=== PATIENT | female | born 1945 ===

== ENCOUNTER 2022-12-30 05:45 | Day surgery (SDC) | payer OTHER | END 2022-12-30 12:00 | disposition home or self-care (01) | LOC: AMB-ENDOS 05:45 | PROVIDERS: ATTEND Surgery | DX: K63.5 Polyp of colon (principal); Z20.822 Contact with and (suspected) exposure to COVID-19 ==

== ENCOUNTER 2023-06-12 09:30 | Inpatient (IN) | payer OTHER ==
[~2023-06-12] VITALS: Ht 160 cm; Wt 104.3 kg
[2023-06-12 10:51] LABS: URINE APPEARANCE Clear; URINE BILIRRUBIN Negative (NEGATIVE); URINE BLOOD Negative; URINE COLOR Yellow; URINE GLUCOSE Negative (NEGATIVE); URINE LEUKOCYTE Large; URINE NITRATE Negative; URINE PROTEIN Trace (NEGATIVE)
[2023-06-12 10:51] LABS: HEMATOCRIT 38.5 % (36.0-45.00); MEAN CELL VOLUME 83.6 fL (80.00-100.00); MEAN CORPUSCULAR HGB CONC 31.1 g/dl (32.0-36.0); PLATELET COUNT 223 K/uL (150-450); RED BLOOD COUNT 4.61 M/uL (4.00-6.00); RED CELL DISTRIBUTION WIDTH 14.6 % (11.5-14.5)
[2023-06-12 10:57] LABS: URINE BACTERIA 219.2 uL (0.0-1933); URINE EPITHELIAL CELLS 45.9 uL (0.0-38.8); URINE RBC 8.3 uL (0.0-20.8); URINE WBC 353.4 uL (0.0-23.2)
[2023-06-12 11:26] LABS: ALBUMIN 3.5 gm/dL (3.4-5.0); BILIRUBIN TOTAL 0.46 mg/dL (0.3-1.2); CALCIUM 9.4 mg/dL (8.5-10.1); CREATININE SERUM 0.71 mg/dL (0.55-1.02); GFR 79.82; GLOBULINA 3.1 G/DL (2.4-3.5); PHOSPHOROUS 3.2 mg/dL (2.5-4.9); POTASSIUM 4.67 mEq/L (3.5-5.1); TOTAL PROTEIN 6.6 gm/dL (6.4-8.2)
[2023-06-12 11:28] LABS: INR 0.97; PARTIAL THROMBOPLASTIN TIME 26.9 SECONDS (22.0-34.0); PROTHROMBIN TIME 10.2 SECONDS (9.0-11.5)
[2023-06-12] MEDS ORDERED: GLUMETZA500 MG PO (12:38)
[2023-06-12] MEDS ORDERED: ELIQUIS2.5 MG PO (12:38)
[2023-06-12] MEDS ORDERED: GLIMEPIRIDE4 M1 PO (12:39)
[2023-06-12] MEDS ORDERED: CLARITIN10 M1 PO (12:39)
[2023-06-12] MEDS ORDERED: SINGULAIR10 MG PO (12:39)
[2023-06-12] MEDS ORDERED: LEVOTHYROXINE25 MCG PO (12:40)
[2023-06-12] MEDS ORDERED: LOSAR PO (12:40)
[2023-06-12] MEDS ORDERED: ATORVAST PO (12:40)
[2023-06-12] MEDS ORDERED: EXELON1 EAC1 TD (12:41)
[2023-06-16 20:26] LABS: HEMATOCRIT 37.2 % (36.0-45.00); HEMOGLOBIN 11.6 g/dL (12.0-15.00); MEAN CELL VOLUME 82.6 fL (80.00-100.00); MEAN CORPUSCULAR HEMOGLOBIN 25.9 pg (27.00-32.0); MEAN CORPUSCULAR HGB CONC 31.3 g/dl (32.0-36.0); PLATELET COUNT 218 K/uL (150-450)
[2023-06-16 20:47] LABS: ALBUMIN 3.2 gm/dL (3.4-5.0); CALCIUM 8.7 mg/dL (8.5-10.1); CREATININE SERUM 0.75 mg/dL (0.55-1.02); GFR 74.93; MAGNESIUM 1.9 mg/dL (1.8-2.4); PHOSPHOROUS 4.2 mg/dL (2.5-4.9); POTASSIUM 4.03 mEq/L (3.5-5.1)
[2023-06-17 08:31] LABS: HEMATOCRIT 35.7 % (36.0-45.00); HEMOGLOBIN 11.4 g/dL (12.0-15.00); MEAN CELL VOLUME 83.4 fL (80.00-100.00); MEAN CORPUSCULAR HEMOGLOBIN 26.6 pg (27.00-32.0); MEAN CORPUSCULAR HGB CONC 31.9 g/dl (32.0-36.0); PLATELET COUNT 214 K/uL (150-450); RED BLOOD COUNT 4.29 M/uL (4.00-6.00)
[2023-06-17 08:35] LABS: CALCIUM 8.5 mg/dL (8.5-10.1); CREATININE SERUM 0.92 mg/dL (0.55-1.02); GFR 59.19; MAGNESIUM 2.1 mg/dL (1.8-2.4); PHOSPHOROUS 5.3 mg/dL (2.5-4.9); POTASSIUM 4.23 mEq/L (3.5-5.1)
[2023-06-18] MEDS ORDERED: INTESTINEX680 M1 PO (08:42)
[2023-06-18] MEDS ORDERED: ACETAMINOPHEN500 M2 PO (08:42)
== END 2023-06-18 10:33 | disposition home or self-care (01) | DRG 331 ==
LOC: SURG 06-16 07:00 → O/R 06-16 11:00 → SURG 06-16 11:00 → SURH 06-16 20:47 → SURG 06-16 21:04
PROVIDERS: ADMIT Surgery; ATTEND Surgery
PROC: 0DBH4ZZ Excision of Cecum, Percutaneous Endoscopic Approach (ICD-10-PCS; principal; 2023-06-16 07:00)
DX: D12.0 Benign neoplasm of cecum (principal)

== ENCOUNTER 2024-03-19 06:10 | Day surgery (SDC) | payer OTHER ==
[~2024-03-19 06:10] MED LIST: ACETAMINOPHEN500 M2 PO; ATORVAST PO; CLARITIN10 M1 PO; ELIQUIS2.5 MG PO; EXELON1 EAC1 TD; GLIMEPIRIDE4 M1 PO; GLUMETZA500 MG PO; INTESTINEX680 M1 PO; LEVOTHYROXINE25 MCG PO; LOSAR PO; SINGULAIR10 MG PO
[2024-03-19] MEDS ORDERED: MIDAZOLAM HCL 2 MG/2 ML VIAL IV ONE (13:15)
[2024-03-19] MEDS ORDERED: DIPHENHYDRAMINE HCL 50 MG/ML VIAL 1ML IV ONE (13:15)
[2024-03-19] MEDS ORDERED: fentaNYL CITRATE 50 MCG/ML AMPUL IV PUSH ONE (13:15)
== END 2024-03-19 14:15 | disposition home or self-care (01) ==
LOC: AMB-ENDOS 06:10 → ADM 13:00 → AMB-ENDOS 14:15
PROVIDERS: ATTEND Surgery
DX: D12.0 Benign neoplasm of cecum (principal); K63.5 Polyp of colon; K57.30 Diverticulosis of large intestine without perforation or abscess without bleeding